=== PATIENT | male | born 1990 | race Caucasian/White ===

== ENCOUNTER 2017-12-17 14:26 | Emergency (ER) | payer OTHER ==
[~2017-12-17] VITALS: Ht 177.8 cm; Wt 113.4 kg
[2017-12-17 14:40] VITALS: BP 130/76
[2017-12-17] MEDS ORDERED: IBUPROFEN 800 MG TAB PO ONE (15:05)
[2017-12-17 15:25] VITALS: BP 128/75
== END 2017-12-17 15:25 | disposition home or self-care (01) ==
LOC: MED 14:26
DX: L03.031 Cellulitis of right toe (principal); B35.3 Tinea pedis
CPT/HCPCS: 99283